=== PATIENT | female | born 1995 | race Asian ===

== ENCOUNTER 2016-08-11 23:57 | Emergency (ER) | payer BC, MEDICAID ==
[~2016-08-11] VITALS: Ht 156.2 cm; Wt 53.0 kg
[2016-08-11 23:58] VITALS: BP 142/76; PULSE 78; RESP 18; TEMP 98; O2SAT 96
[2016-08-12] MEDS ORDERED: ALBU6.7H INH (00:44)
[2016-08-12] MEDS ORDERED: PROMETHAZINE INJ 25 MG/ML VIAL IM ONE (01:30)
[2016-08-12] MEDS ORDERED: ACETAMIN 325 MG/BUTALBITAL 50 MG/CAFFEINE 40 MG TAB PO ONE (01:30)
[2016-08-12] MEDS ORDERED: BUTA1CAP PO (01:38)
[2016-08-12] MEDS ORDERED: PROM25TA5 PO (01:38)
--- NOTE | 2016-08-12 01:38 | PD ---
HPI Chief Complaint: GI Complaint Time Seen by Provider: 01:08 Travel History International Travel<30 days: No Contact w/Intl Traveler<30days: No Traveled to known affect area: No History of Present Illness HPI 21-year-old female complains of headache, nausea vomiting. Patient states that the symptoms started this morning. Patient has history of migraine in the past. Patient is 13 weeks now. Patient states that the headache aching headache diffuse over the head. Patient denies any visual change. Patient denies any neck pain. Patient denies any chest pain or shortness of breath. Patient denies abdominal pain. Patient denies any vaginal discharge or bleeding. Patient denies any dysuria or frequency. Patient denies any fever chills. Patient stated the headache is the same headache he had in the past with migraine. Patient denies any recent head injury. On a scale from 1- 10 headache is a 7. PFSH Past Medical History Gastrointestinal Disorders: Yes (H PYLORI) Migraines: Yes Tetanus Vaccination: Unknown Influenza Vaccination: No ?: : 3 Para: 0 Miscarriage: 2 Past Surgical History Surgical History: No Previous Surgery Social History Alcohol Use: No Tobacco Use: No Substance Use: No (STATES SHE QUIT MARIJUANA) Allergies-Medications (Allergen,Severity, Reaction): Coded Allergies: No Known Allergies (Unverified , 08/12/16) Reported Meds & Prescriptions Reported Meds & Active Scripts Active Reported Proventil Hfa 6.7 GM Inh (Albuterol Sulfate) 90 Mcg/Act Aer 2 Puff INH Q4-6H PRN Review of Systems General / Constitutional: No: Fever Eyes: No: Visual changes HENT: Positive: Headaches Cardiovascular: No: Chest Pain or Discomfort Respiratory: No: Shortness of Breath Gastrointestinal: Positive: Nausea, Vomiting, No: Abdominal Pain Genitourinary: No: Dysuria Musculoskeletal: No: Pain Skin: No Rash Neurologic: No: Weakness Psychiatric: No: Depression Endocrine: No: Polydipsia Hematologic/Lymphatic: No: Easy Bruising Physical Exam Narrative GENERAL: Well-nourished, well-developed patient. SKIN: Warm and dry. HEAD: Normocephalic. EYES: No scleral icterus. No injection or drainage. Pupils 4 mm equal reactive. Fundi benign. NECK: Supple, trachea midline. No JVD or lymphadenopathy. No meningismus CARDIOVASCULAR: Regular rate and rhythm without murmurs, gallops, or rubs. RESPIRATORY: Breath sounds equal bilaterally. No accessory muscle use. GASTROINTESTINAL: Abdomen soft, non-tender, nondistended. MUSCULOSKELETAL: No cyanosis, or edema. BACK: Nontender without obvious deformity. No CVA tenderness. Neurologic exam normal. Data Data Last Documented VS Vital Signs Date Time Temp Pulse Resp B/P Pulse Ox O2 Delivery O2 Flow Rate FiO2 08/12/16 00:40 14 08/11/16 23:58 98.0 78 142/76 96 Room Air Orders Mjfy-Hhwle-Ksya 325-50-40 Mg (Fioricet 3 (08/12/16 01:30) Promethazine Inj (Phenergan Inj) (08/12/16 01:30) MDM Medical Decision Making Medical Screen Exam Complete: Yes Emergency Medical Condition: Yes Differential Diagnosis Differential diagnosis including migraine headache, tension headache, cluster headache, normal pressure hydrocephalus, encephalitis. Narrative Course 21-year-old female with headache and nausea vomiting. Patient is 13 weeks . Bedside pelvic ultrasound shows intrauterine heart tone 140. Fioricet one tablet by mouth given. Phenergan 25 mg IM. Procedures Procedure Narrative Emergency Department Pelvic ultrasound was performed with patient consent. The curvilinear probe was used in the transverse and sagittal views within the suprapubic region revealing single intrauterine . heart rate was 140 Diagnosis Primary Impression: Cephalgia Qualified Code: G44.1 - Other vascular headache Patient Instructions: General Instructions Additional Instructions: Fioricet and Phenergan as needed. Follow-up with personal physician. Return if persistent headache, worsening of the headache, fever, persistent vomiting. Med/Other Pt SpecificInfo: Prescription(s) given Scripts Promethazine (Phenergan)25 Mg Tab25 Mg PO Q6H PRN (Nausea/Vomiting) #15 TAB Ref 0 Prov:Ruy Evans MD 08/12/16 Rrwadyznvr-Sjjztyovrmpnb-Gjtifxrm (Fioricet)50-300-40 Mg Cap1-2 Cap PO Q6H PRN ( HEADACHE) #30 CAP Ref 0 Prov:Ruy Evans MD 08/12/16 Disposition: 01 DISCHARGE HOME Condition: Stable Ruy Evans MD Aug 12, 2016 01:38
[2016-08-12 02:14] VITALS: BP 108/64
== END 2016-08-12 02:24 | disposition home or self-care (01) ==
LOC: NEPE 23:57
DX: O26.891 Other specified pregnancy related conditions, first trimester (principal); R51 Headache; R11.2 Nausea with vomiting, unspecified; Z3A.13 13 weeks gestation of pregnancy
CPT/HCPCS: 96372; 99283; J2550